=== PATIENT | female | born 1960 | race Caucasian/White ===

== ENCOUNTER 2017-03-08 07:56 | Day surgery (SDC) | payer OTHER, BC ==
[~2017-03-08 07:56] MED LIST: BUSPAR15 MG PO; CALCIUM500 M4 PO; CARAFATE1 GM PO; COUMADIN2 MG PO; COUMADIN3 MG PO; CYMBALTA60 MG PO; Claritin,Alavart PO; Cymbalta PO; DAILY VALUE1 EACH PO; DESYREL100 MG PO; ERGOCALCIF50000 UNIT PO; FLEXERIL5 MG PO; Flonase BOTH NARES; IMODIUM MS REL1 EACH PO; KAPIDEX60 MG PO; Lovenox SC; OMEPRAZOLE40 M1 PO; REQUIP0.5 MG PO; ULTRAM50 MG PO; VIBRAMYCIN100 MG PO; VITAMIN B-12 51 EACH SL; Vibramycin, Doryx PO; Vicodin,Norco 5/325 PO; XANAX0.5 MG PO; Xanax PO; celeBREX PO
[2017-03-08 08:52] LABS: PROTHROMBIN TIME 10.5 (9.2-11.2); PTT 26.2 (25-32)
== END 2017-03-08 10:02 | disposition home or self-care (01) ==
LOC: PAIN 07:56 → SDC 08:30 → PAIN 10:02
PROVIDERS: Anesthesiology Pain Medicine
DX: M50.90 Cervical disc disorder, unspecified, unspecified cervical region (principal); M54.2 Cervicalgia; G89.29 Other chronic pain; M54.5 Low back pain; M12.88 Other specific arthropathies, not elsewhere classified, other specified site; M79.1 Myalgia; I10 Essential (primary) hypertension; J44.9 Chronic obstructive pulmonary disease, unspecified; K21.9 Gastro-esophageal reflux disease without esophagitis; Z86.718 Personal history of other venous thrombosis and embolism; D68.51 Activated protein C resistance; Z79.01 Long term (current) use of anticoagulants; Z87.891 Personal history of nicotine dependence; Z79.891 Long term (current) use of opiate analgesic
CPT/HCPCS: 85610; 85730; J1030; J2250; J3010; S0020